=== PATIENT | female | born 1935 | race African-American/Black ===

== ENCOUNTER 2022-05-07 11:19 | Emergency (ER) | payer BC, MEDICARE ==
[~2022-05-07] VITALS: Ht 162.6 cm; Wt 59.1 kg
[~2022-05-07 11:19] MED LIST: AMLO-258 PO; BACL10TA PO; BENA20TA83 PO; DICL75TA5 PO; HYDR25TA2 PO; RANI150T7 PO; SIMV-261 PO; TYL3 PO
[2022-05-07] MEDS ORDERED: LOSA-381 PO (11:24)
[2022-05-07] MEDS ORDERED: METF-1211 PO (11:26)
[2022-05-07] MEDS ORDERED: LOSA-382 PO (11:26)
[2022-05-07 11:34] VITALS: BP 138/72
[2022-05-07] MEDS ORDERED: POVIDONE-IODINE 10% 15 ML SOLUTION UD TP ONE (11:45)
[2022-05-07] MEDS ORDERED: IBUPROFEN 400 MG TABLET PO ONE (11:45)
[2022-05-07] MEDS ORDERED: ACETAMINOPHEN 325 MG TABLET PO ONE (11:45)
[2022-05-07] MEDS ORDERED: LIDOCAINE 1% 10 ML VIAL PERC ONE (11:45)
== END 2022-05-07 15:05 | disposition home or self-care (01) ==
LOC: EMS 11:19
DX: S05.41XA Penetrating wound of orbit with or without foreign body, right eye, initial encounter (principal); S05.11XA Contusion of eyeball and orbital tissues, right eye, initial encounter; E11.9 Type 2 diabetes mellitus without complications; I10 Essential (primary) hypertension; M19.90 Unspecified osteoarthritis, unspecified site; W01.10XA Fall on same level from slipping, tripping and stumbling with subsequent striking against unspecified object, initial encounter; Y93.89 Activity, other specified; Y92.89 Other specified places as the place of occurrence of the external cause; Y99.8 Other external cause status; Z90.710 Acquired absence of both cervix and uterus
CPT/HCPCS: 99284; 70486; 82962; 12011; J3490